=== PATIENT | male | born 1980 | race African-American/Black ===

== ENCOUNTER 2018-02-04 00:14 | Emergency (ER) | payer MEDICAID ==
[~2018-02-04] VITALS: Ht 180.3 cm; Wt 108.9 kg
[2018-02-04 01:01] LABS: Basophils # (auto) 0.1 uL; Basophils % (auto) 0.5 % (0.0-2.0); Eosinophils # (auto) 0.1 uL; Eosinophils % (auto) 0.5 % (0.0-7.0); Hematocrit 42.6 % (41.0-53.0); Hemoglobin 14.1 g/dL (13.5-17.5); Lymphocytes # (auto) 1.4 uL; Lymphocytes % (auto) 11.5 % (10.0-50.0); Mean Corpuscular Hemoglobin 27.6 pg (28.0-32.0); Mean Corpuscular Hgb Conc. 33.2 g/dL (32.0-36.0); Mean Corpuscular Volume 83.2 fL (80.0-100.0); Monocytes # (auto) 1.2 uL; Monocytes % (auto) 9.4 % (0.0-12.0); Neutrophils # (auto) 9.8 uL; Neutrophils % (auto) 78.1 % (37.0-80.0); Platelet Count (auto) 269 10^3/uL (140-450); Red Blood Cells 5.12 10^6/uL (4.5-5.90); White Blood Cell 12.5 10^3/uL (4.4-10.8)
[2018-02-04 01:13] LABS: Albumin 3.7 g/dL (3.4-5.0); BUN/Creatinine Ratio 11.9; Calcium 8.2 mg/dL (8.5-10.1); Potassium 3.8 mmol/L (3.5-5.1)
[2018-02-04 01:15] LABS: Bilirubin, Total 0.5 mg/dL (0.2-1.0); Total Protein 7.8 g/dL (6.4-8.2)
[2018-02-04 02:50] VITALS: BP 147/78
[2018-02-04] MEDS ORDERED: LIDOCAINE 1% HCL (LOCAL ANESTH.) INJ 20ML MDV IJ ONE (03:30)
[2018-02-04] MEDS ORDERED: cefTRIAXone SOD 1,000 MG VL IM ONE (03:30)
== END 2018-02-04 04:07 | disposition home or self-care (01) ==
LOC: ER 00:17
DX: L03.012 Cellulitis of left finger (principal)
CPT/HCPCS: 26010; 36415; 73130; 80053; 85025; 96372; 99285; J0696; 10060